=== PATIENT | female | born 1980 | race Hispanic/Latino ===

== ENCOUNTER → 2024-06-30 | Day surgery (SDC) | payer BC ==
[2024-06-27 10:52] LABS: BASOPHILS # (AUTO) 0.1 (0.0-0.1); BASOPHILS % 0.5 % (0.0-1.0); EOSINOPHILS # (AUTO) 0.2 (0.0-0.4); EOSINOPHILS % 1.6 % (0.0-6.0); HEMATOCRIT 39.4 % (34.2-44.1); HEMOGLOBIN 12.8 g/dL (12.0-16.0); LYMPHOCYTES % 19.7 % (18.0-39.1); MEAN CORPUSCULAR HEMOGLOBIN 30.3 pg (28-32); MEAN CORPUSCULAR HGB CONC 32.5 g/dL (31-35); MEAN CORPUSCULAR VOLUME 93.1 fL (81-99); MONOCYTES # (AUTO) 0.4 (0.2-0.8); MONOCYTES % 3.9 % (4.4-11.3); NEUTROPHILS # (AUTO) 7.5 (2.1-6.9); PLATELET COUNT 376 x10e3/uL (140-360); RED BLOOD COUNT 4.23 x10e6/uL (3.6-5.1); RED CELL DISTRIBUTION WIDTH 13.2 % (11.7-14.4); WHITE BLOOD COUNT 10.06 x10e3/uL (4.8-10.8)
[~2024-06-30] MED LIST: ACETAMINOPHEN 1000 MG/100 ML 100 ML IV ONE; ACETAMINOPHEN 1000 MG/100 ML IV PRN; ASPIRIN 325 MG TAB PO SCH; BUPIVACAINE/EPI 0.5% 30ML SDV-MPF INJ ONE; DEXAMETHASONE SOD PHOS INJ 4 MG/ML SDV ONE; DIPHENHYDRAMINE HCL INJ 50 MG/ML VIAL IV PRN; DOCUSATE SODIUM 100 MG CAP PO PRN; ESMOLOL HCL 100MG/10ML 10 MG/ML VIAL ONE; FENTANYL CITRATE/PF 100MCG/2 ML INJ ONE; HYDROCODONE/APAP 5MG-325MG TAB PO PRN; HYDROCODONE/APAP 7.5MG-325MG 1 EA TAB PO PRN; IRON PO; LIDOCAINE HCL 2% LOCAL INJ 5 ML SDV VIAL INJ ONE; METOCLOPRAMIDE HCL 10 MG/2ML VIAL ONE; MIDAZOLAM HCL 2 MG/2 ML VIAL ONE; ONDANSETRON HCL INJ 2MG/ML 2ML 2 MG/ML VIAL IV PRN; PHENYLEPHRINE HCL 1% 10 MG/ML VIAL ONE; PROPOFOL IV EMULSION 10 MG/ML 20 ML VIAL ONE; ROPIVACAINE/EPI/CLONIDINE/KET 50 ML SYRINGE INJ ONE; SEVOFLURANE INHAL SOLN 250 ML PEN BTL ONE; SODIUM CHLORIDE 0.9% 100 ML ONE; SODIUM CHLORIDE 0.9% 1000ML 1,000 ML IV SCH; TRANEXAMIC ACID 1,000 MG/10 ML ML ONE; VITAMIN D310 MCG PO
[2024-06-30] MEDS: CEFAZOLIN SODIUM 2 GM ONE (08:48)
[2024-06-30] MEDS: GABAPENTIN 300 MG CAP ONE (08:49)
[2024-06-30] MEDS: CELECOXIB 200 MG CAP ONE (08:49)
[2024-06-30] MEDS: LACTATED RINGER'S 1,000 ML ONE (08:50)
[2024-06-30] MEDS: DEXAMETHASONE SOD PHOS 10 MG/1 ML VIAL ONE (08:50)
[2024-06-30 12:22] VITALS: TEMP 98.1
[2024-06-30 14:40] VITALS: BP 109/78; PULSE 107; RESP 16; O2SAT 100
== END | disposition home or self-care (01) ==
LOC: OR 07:55
PROVIDERS: ATTEND Specialist
DX: M16.31 Unilateral osteoarthritis resulting from hip dysplasia, right hip (principal); Q65.89 Other specified congenital deformities of hip; M17.5 Other unilateral secondary osteoarthritis of knee; D64.9 Anemia, unspecified; F17.210 Nicotine dependence, cigarettes, uncomplicated; Z01.810 Encounter for preprocedural cardiovascular examination; Z01.812 Encounter for preprocedural laboratory examination; Z01.818 Encounter for other preprocedural examination
CPT/HCPCS: 27130; 36415; 71046; 72170; 81025; 85025; 86850; 86900; 93005; 97116; 97161; 97530; C1713 ×2; C1776 ×2; J0131; J0690; J1100 ×2; J2003; J2250; J2371; J2704; J2765; J3010; J7050; J7121